=== PATIENT | male | born 1950 | race Caucasian/White ===

== ENCOUNTER 2016-08-16 18:33 | Inpatient (IN) | payer MEDICARE ==
[2016-08-16 20:05] VITALS: BP 134/93
[2016-08-16] MEDS ORDERED: Magnesium Hydroxide (MOM) 30 mL UDC PO PRN (20:08)
[2016-08-16] MEDS ORDERED: Maalox 30 mL Cup PO PRN (20:08)
[2016-08-17] MEDS ORDERED: ENOXAPARIN SODIUM 40 MG SQ SCH (09:00)
[2016-08-17] MEDS ORDERED: Enoxaparin 40 mg/0.4 mL 0.4mL Syr SUBQ SCH (09:00)
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
--- NOTE | 2016-08-17 21:59 | Admit Criteria Form ---
Admit Criteria Forms - Admit Criteria Diagnosis: PSYCHIATRIC DISORDERS Clinical Indications for Inpatient Care (Place 'X' for any and all applicable criteria): Ongoing inpatient care may be needed for ANY ONE of the following(1)(2)(3)(4)(6) (7)(8): [X]I. Danger to self or others not manageable at lower level of care. [ ]II. Grave disability (eg, inability to perform self care necessary at lower level of care) [ ]III. Agitation or inappropriate behavior interfering with care for primary condition (eg, attempting to discontinue lines or drains prematurely, unable to cooperate with respiratory care) [ ]IV. Severe disability or disorder indicated by ALL of the following: [ ]a) Severe behavioral health disorder-related symptoms or condition indicated by ANY ONE of the following: [ ]i) Severe problem with cognition, memory, judgment, or impulse control [ ]ii) Severe clinical manifestations (eg, hallucinations, delusions, other acute psychotic symptoms, lashawn, extreme agitation or anxiety) [ ]b) Patient management at lower level of care is not feasible until acute intervention or modification is initiated. Extended stay beyond goal length of stay for the primary condition may be indicated when ANY ONE of the following is present: (1)(2)(3)(4): [ ]a) Patient is a danger to self or others and not manageable at lower level of care. [ ]b) Behavior crisis management, including physical or chemical restraints, is required and is not available at a lower level of care. [ ]c) Behavioral symptoms (e.g., agitation, somnolence, inappropriate behavior) are present, and are not manageable at a lower level of care. [ ]d) Patient cannot understand follow-up treatment and crisis plan. [ ]e) Provider and supports are not sufficiently available at lower level of care. [ ]f) Patient cannot participate (e.g., verify absence of plan for harm) and is in needed of monitoring. The original [facility] content created by [facility] [employer] has been revised. The portions of the content which have been revised are identified through the use of italic text or in bold, and [facility] [employer] has neither reviewed nor approved the modified material. All other unmodified content is copyright [facility] [employer]. Please see references footnoted in the original [facility] edition 2016
--- NOTE | 2016-08-18 14:32 | History & Physical ---
ADMIT DATE: 08/16/2016 PATIENT IDENTIFICATION: A 66-year-old male. REQUESTING PHYSICIAN: Dr. Rosalba Sebastian. CHIEF COMPLAINT: "I'm fine." HISTORY OF PRESENT ILLNESS: A 66-year-old Maldivian male who speaks Estonian only. 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 Sebastian with legal status of 5150 after the patient was noted to have increasing psychosis with hallucinations and paranoid and wanted to kill his . PAST MEDICAL HISTORY: Remarkable for hypertension and diet-controlled diabetes mellitus and DJD. MEDICATIONS AT HOME: Has been reviewed and reconciled appropriately. ALLERGIES: The patient is not allergic to medications. SOCIAL HISTORY: He lives in [facility]. The patient has a history of smoking cigarette. No alcohol or drug use. FAMILY MEDICAL HISTORY: Remarkable for hypertension. REVIEW OF SYSTEMS: The patient currently denies any headache, blurred vision, double vision, dysphagia, odynophagia, runny nose, stuffy nose, fever, chills, cough, chest pain, shortness of breath, palpitation, dizziness, nausea, vomiting, diarrhea, dysuria, hematuria, hematochezia, melena. No seizure or syncopal episode. Does have pain when he wakes up in the morning with some stiffness. PHYSICAL EXAMINATION: GENERAL: The patient is alert, awake, oriented, lying in the bed without any acute distress. VITAL SIGNS: Temperature 98.6, pulse is 74, respiratory rate 18, blood pressure 136/86. SKIN: Warm to touch. HEENT: Normocephalic, atraumatic. Extraocular muscles are intact. Tongue was pink and coated. Poor dentition noted. No oral lesion noted. No facial asymmetry. NECK: Supple, no JVD, no hepatojugular reflux. No lymphadenopathy, thyromegaly or carotid bruit. HEART: Both heart sounds are regular. No S3, no S4, no murmur. CHEST: Lung equal in expansion with expiratory wheezing throughout. ABDOMEN: Soft. No guarding, no rigidity. Bowel sounds are present. No palpable mass. EXTREMITIES: No edema, no cyanosis. Diffuse osteoarthritic changes noted. There is a dry callus on the left foot also noted at the first MTP joint area. Peripheral pulses +1. No calf tenderness. NEUROLOGIC: Alert, awake, follows commands. No facial asymmetry. Moving upper and lower extremities without any difficulty. AVAILABLE DIAGNOSTIC DATA: Urinalysis is negative except leuk esterase was trace noted. White count 7.2, hemoglobin 12.7, platelet count of 324. Sodium 139, potassium ____, chloride 103, CO2 25, BUN and creatinine is 15 and 0.6. Urine drug screen was negative. Chest x-ray and EKG has been reviewed. CLINICAL IMPRESSION: 1. Hypertension. 2. Acute exacerbation of psychotic disorder. 3. Diet-controlled diabetes mellitus. 4. Degenerative joint disease. 5. Smoking. 6. Possible chronic obstructive pulmonary disease. PLAN: 1. Psychiatric evaluation and management deferred to psychiatrist. 2. Monitor the blood sugar and use sliding scale. 3. Continue antihypertensive medicines. 4. Fall precautions discussed. 5. The patient should have outpatient pulmonary function tests for evaluation of his COPD. 6. Smoking cessation counseling has been discussed. 7. Care plan has been reviewed and discussed with staff. 8. The patient is medically stable to participate in the activity provided by the Geropsych Unit at the [facility]. I sincerely thank you, Dr. Rosalba Sebastian, for giving me the opportunity to participate in patient of yours. JOB# [id number]
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
--- NOTE | 2016-08-19 18:35 | General Progress Note ---
Subjective - Review of Systems Subjective: PATIENT IS SEEN AND EXAMINED. UNABLE TO GET MEANINGFUL HISTORY. Objective - Results Recent Labs: Laboratory Last Values POC Glucose 130 MG/DL (70 - 105) H 08/18/16 16:20 - Physical Exam Vitals and I&O: Vital Signs Temp 98.3 F 08/19/16 14:00 Pulse 90 08/19/16 14:00 Resp 20 08/19/16 14:00 BP 128/69 08/19/16 14:00 Pulse Ox 98 08/19/16 14:00 Intake & Output 08/18/16 08/19/16 08/19/16 18:59 06:59 18:59 Intake Total 6316 616 8458 Balance 5401 503 0541 Intake: Oral 7131 950 6406 Other: # Voids 3 2 4 # Bowel Movements 1 0 1 Stool Characteristics Formed Formed Formed Active Medications: Current Medications Acetaminophen (Tylenol) 650 mg PO Q6H PRN PRN Reason: Mild Pain/Headache/T above 101 Stop: 10/15/16 20:07 Al Hydrox/Mg Hydrox/Simethicone (Maalox) 30 ml PO Q6H PRN PRN Reason: Dyspepsia Stop: 10/15/16 20:07 Enalapril Maleate (Vasotec) 10 mg PO DAILY [facility] Stop: 10/16/16 08:59 Last Admin: 08/19/16 08:03 Dose: 10 mg Lorazepam (Ativan) 1 mg PO Q6H PRN; Protocol PRN Reason: Anxiety/Agitation Stop: 10/15/16 20:07 Magnesium Hydroxide (Milk Of Magnesia) 30 ml PO HS PRN PRN Reason: Constipation Stop: 10/15/16 20:07 Quetiapine Fumarate (Seroquel) 37.5 mg PO BID [facility] PRN Reason: Protocol Stop: 10/18/16 10:51 Last Admin: 08/19/16 18:04 Dose: 37.5 mg Risperidone (Risperdal) 1 mg PO BID [facility] Stop: 10/16/16 08:59 Last Admin: 08/19/16 18:05 Dose: 1 mg Zolpidem Tartrate (Ambien) 5 mg PO HS PRN PRN Reason: Insomnia Stop: 10/15/16 20:07 General: Alert, Cooperative, No acute distress HEENT: Atraumatic, PERRLA Neck: +2 carotid pulse wo bruit Cardiovascular: Regular rate, Normal S1, Normal S2 Lungs: Clear to auscultation Abdomen: Bowel sounds, Soft Extremities: Other (No edema+) Psych/Mental Status: Other (Labile mood+) Assessment/Plan - Assessment Assessment: COPD HTN DIET CONTROLLED DM DJD PSYCH DISORDER FALL RISK - Plan Plan: PRN OXYGEN HHN PRN. ANTI HTN MEDS. MONITOR GLUCOSE AND VITALS FALL PRECAUTIONS. MONITOR BEHAVIOR. CONTINUE CURRENT CARE PSYCH MEDS PSYCH FOLLOW UP. DISCUSSED WITH STAFF.
--- NOTE | 2016-08-20 05:54 | Progress Notes ---
DATE: 08/19/2016 Case was discussed with staff of the patient, reviewed records. The patient has been acting aggressive with the staff, acting out, throwing water on the staff, continues to be argumentative, unpredictable, impulsive, needing redirection, looking disheveled, disorganized. He is currently on Lexapro 25 mg twice a day as well as Risperdal 1 mg twice a day with no side effects, no sedation, no nausea. I will be increasing his Seroquel to 37.5 mg twice a day. So far, no side effects, no sedation, no nausea, and no extrapyramidal symptoms. JOB# [id number]
--- NOTE | 2016-08-21 08:11 | Progress Notes ---
DATE: 08/20/2016 SUBJECTIVE: Chart reviewed and the patient interviewed. Also discussed the patient's condition with the staff and reviewed records and labs. The patient is still anxious and is still with irritable mood. The patient also is still having episodes of aggression and still needs lots of redirections. The patient also is slightly easier to redirect him. The patient continued to comply with taking his medications with no side effects of Seroquel. ASSESSMENT: The patient is still psychotic. TREATMENT PLAN: Continue working on his behavior and poor impulse control, and continue adjusting psychotropic medications and followup. JOB# [id number]
[2016-08-22] MEDS: Multivitamin Tab PO SCH (08:38)
--- NOTE | 2016-08-22 08:43 | Progress Notes ---
DATE: 08/21/2016 SUBJECTIVE: Chart reviewed and the patient interviewed. Also, discussed the patient's condition with the staff and reviewed records and labs. The patient is still in angry and in irritable mood. The patient also still needs lots of redirections. The patient also still has periods of agitation and aggression, especially when staff tries to help him with his ADLs. Otherwise, the patient is slightly easier to redirect him. ASSESSMENT: The patient is still aggressive and needs close monitoring. TREATMENT PLAN: We will continue monitoring his behavior and his condition closely. Also, continue to work on behavioral modification, and we will continue to follow up. JOB# [id number]
[2016-08-22] MEDS ORDERED: Haloperidol Lactate 5 mg/mL 1mL Vial ONE (15:33)
[2016-08-22] MEDS ORDERED: Haloperidol Lactate 5 mg/mL 1mL Vial IM ONE (15:34)
--- NOTE | 2016-08-22 23:44 | Progress Notes ---
DATE: 08/22/2016 SUBJECTIVE: Chart was reviewed and the patient was interviewed. Also discussed the patient's condition with the staff and reviewed records and labs. The patient is still confused and is still disoriented. The patient also is still delusional and he thinks that, "I work here." He has been trying to wipe the floor and saying that cleaning. The patient also is still having difficulty following redirections and he is still confused. Otherwise, the patient is compliant with taking his medications with no side effects of medications. ASSESSMENT: The patient is still psychotic and manic and confused. TREATMENT PLAN: Continue monitoring his behavior and his condition closely. Also, Seroquel was increased to 50 mg 3 times a day with no side effects. We will continue the same dose and we will continue to follow up. JOB# [id number]
[2016-08-23] MEDS: Multivitamin Tab PO SCH (08:04)
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
[2016-08-24] MEDS: Multivitamin Tab PO SCH (08:02)
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
--- NOTE | 2016-08-25 00:01 | Progress Notes ---
DATE: 08/24/2016 The patient was seen and examined. The patient states, "I'm fine. I want to go home." Upon further questioning, RN does not report any new event from medical standpoint. PHYSICAL EXAMINATION: VITAL SIGNS: See nurse's note. HEENT: Poor dentition. NECK: Supple, no JVD. HEART: Regular. CHEST: Equal in expansion. LUNGS: No wheezing. No crackles. ABDOMEN: Soft. No guarding. No rigidity. EXTREMITIES: No edema. NEUROLOGIC: Nonfocal. Available MAR has been reviewed. CLINICAL IMPRESSION: 1. Hypertension. 2. Diet-controlled diabetes mellitus. 3. Degenerative joint disease. 4. Chronic obstructive pulmonary disease. 5. Smoking. 6. Psychotic disorder. PLAN: 1. Psychiatric disorder. Management deferred to psychiatrist. 2. Antihypertensive medicine. 3. Glucoscan. 4. Diabetic diet. 5. Smoking cessation counseling discussed. 6. General nursing care. 7. Follow labs. 8. Followup visit tomorrow. JOB# [id number]
[2016-08-25] MEDS: Multivitamin Tab PO SCH (08:54)
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
[2016-08-26] MEDS: Multivitamin Tab PO SCH (09:42)
--- NOTE | 2016-08-27 02:10 | Progress Notes ---
DATE: 08/26/[address] Randhawa covering for Dr. Sebastian. SUBJECTIVE: The patient was seen and evaluated. The patient's chart reviewed. Nursing staff reported that the patient ____ get easily irritable and ____ himself trying to hit others. Today on [id number] evaluation, the patient is easily irritable, easily agitated, very poor historian, does not really want to engage in a much linear conversation and he avoids the interview. MENTAL STATUS EXAMINATION: Avoidant of the interview, poor insight, judgment and impulse control. ASSESSMENT AND PLAN: The patient is a 66-year-old male who continues to find himself still on aggressive behavior. The patient is still unpredictable resulting in aggressive behavior, he is unable to formulate a safe plan outside the structured environment. We will continue with the current psychiatrist's treatment plans and goals and add medications to reach a steady state and target the patient's residual aggressive symptoms. [facility]# [id number]
[2016-08-27] MEDS: Multivitamin Tab PO SCH (09:23)
--- NOTE | 2016-08-28 03:56 | Progress Notes ---
DATE: 08/27/2016 SUBJECTIVE: The patient was seen, chart reviewed, and discussed with staff. The patient is currently in the hospital, admitted under the care of Dr. Sebastian. The patient has been agitated and aggressive, needing a lot of prompting and redirection. The patient was admitted on 08/17/2016, noted to be aggressive at home, paranoid, hitting his , very dangerous and violent and agitated. The patient is minimizing his symptoms, not quite sure why he is here. He is oriented to name, place, year. Dr. Randhawa saw the patient over the weekend and is noting that he remained symptomatic, somewhat irritable, aggressive, impulsive, poor impulse control, not a very good historian, guarded, minimizing the reasons that he is here, still aggressive at times. Medications were reviewed, currently on Seroquel b.i.d. at bedtime. ASSESSMENT: The patient remains symptomatic. There are still continued safety concerns. We will continue to monitor and titrate medications. The patient is not safe for discharge due to his violent behaviors upon presentation and has continued irritability and poor impulse control. [facility]# [id number]
[2016-08-28] MEDS: Multivitamin Tab PO SCH (08:44)
--- NOTE | 2016-08-29 03:28 | Progress Notes ---
DATE: 08/28/2016 SUBJECTIVE: The patient was seen, chart reviewed, and discussed with staff. The patient is singing, still rambling, currently tolerant of his medications and good medication compliance. No side effects. The patient is still noted to be somewhat irritable, poor impulse control, agitated, not a very good historian, not really engaging much in linear conversation, avoidant of the interview. The patient is denying any medication side effects, sleeping well, eating well. ASSESSMENT: The patient remains avoidant of the interview, poor insight, poor impulse control, safety concerns persist, unpredictable. We will continue to monitor, continue medications at current dose given the persistence of the patient's behaviors, there are continuing safety concerns, but improvement has been noted. He seems to be less aggressive and following unit rules and directions better. [facility]# [id number]
[2016-08-29] MEDS: Multivitamin Tab PO SCH (08:20)
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
--- NOTE | 2016-08-29 14:50 | General Progress Note ---
Subjective - Review of Systems Subjective: PATIENT IS SEEN AND EXAMINED. UNABLE TO GET MEANINGFUL HISTORY. GOING TO ECF. AMBULATING. Objective - Results Recent Labs: Laboratory Last Values POC Glucose 130 MG/DL (70 - 105) H 08/18/16 16:20 - Physical Exam Vitals and I&O: Vital Signs Temp 98.3 F 08/29/16 05:25 Pulse 82 08/29/16 08:20 Resp 20 08/29/16 05:25 BP 123/60 08/29/16 08:20 Pulse Ox 97 08/29/16 05:25 Intake & Output 08/28/16 08/29/16 08/29/16 18:59 06:59 18:59 Intake Total 900 Balance 900 Intake: Oral 900 Other: # Voids 4 2 # Bowel Movements 1 1 Active Medications: Current Medications Acetaminophen (Tylenol) 650 mg PO Q6H PRN PRN Reason: Mild Pain/Headache/T above 101 Stop: 10/15/16 20:07 Al Hydrox/Mg Hydrox/Simethicone (Maalox) 30 ml PO Q6H PRN PRN Reason: Dyspepsia Stop: 10/15/16 20:07 Clonazepam (Klonopin) 0.5 mg PO BID MAGUI PRN Reason: Protocol Stop: 10/22/16 16:59 Last Admin: 08/29/16 08:20 Dose: 0.5 mg Enalapril Maleate (Vasotec) 10 mg PO DAILY [facility] Stop: 10/16/16 08:59 Last Admin: 08/29/16 08:20 Dose: 10 mg Lorazepam (Ativan) 1 mg PO Q6H PRN; Protocol PRN Reason: Anxiety/Agitation Stop: 10/15/16 20:07 Magnesium Hydroxide (Milk Of Magnesia) 30 ml PO HS PRN PRN Reason: Constipation Stop: 10/15/16 20:07 Multivitamins/Vitamin C (Theragran) 1 tab PO DAILY MAGUI Stop: 10/21/16 08:59 Last Admin: 08/29/16 08:20 Dose: 1 tab Quetiapine Fumarate (Seroquel) 100 mg PO BID MAGUI Stop: 10/22/16 16:59 Last Admin: 08/29/16 08:20 Dose: 100 mg Quetiapine Fumarate (Seroquel) 200 mg PO HS MAGUI PRN Reason: Protocol Stop: 10/22/16 20:59 Last Admin: 08/28/16 20:34 Dose: 200 mg Thiamine HCl (Vitamin B1) 100 mg PO DAILY MAGUI Stop: 10/21/16 08:59 Last Admin: 08/29/16 08:20 Dose: 100 mg Zolpidem Tartrate (Ambien) 5 mg PO HS PRN PRN Reason: Insomnia Stop: 10/15/16 20:07 Last Admin: 08/20/16 21:02 Dose: 5 mg General: Alert, Cooperative HEENT: Atraumatic, PERRLA Neck: Supple, JVD Cardiovascular: Regular rate, Normal S1, Normal S2 Lungs: Clear to auscultation Abdomen: Bowel sounds, Soft Extremities: Other (no edema+) Neurological: Normal gait Assessment/Plan - Assessment Assessment: COPD HTN DIET CONTROLLED DM DJD PSYCH DISORDER FALL RISK - Plan Plan: STABLE FOR DISCHARGE TO ECF. KEEP CURRENT MEDS I WILL FOLLOW HIM AT ECF. DISCUSSED WITH STAFF. Nutritional Asmnt/Malnutr-PDOC - Dietary Evaluation Malnutrition Findings (Please click <Entered> for more info): Nutritional Asmnt/Malnutrition Start: 08/23/16 19: 07 Text: Status: Complete Freq: Document 08/23/16 19:07 [facility] (Rec: 08/23/16 19:13 [facility] [id number]) Nutritional Asmnt/Malnutrition Patient General Information Nutritional Screening Low risk Diagnosis Schizoaffective disorder, bipolar type with psychotic features Pertinent Medical Hx/Surgical Hx HTN, DM2, schizoaffective disorder Subjective Information Pt is a 66-year-old male admitted with chief complaint of agitation and aggressive behavior. Per RN notes, pt is confused and delusion. Pt speaks Setswana only. Current Diet Order/ Nutrition Support Regular Patient / S.O Can't verbalize diet edu Pertinent Medications Theragran, Seroquel, Vitamin B1 Pertinent Labs Reviewed. POC Glucose WNL. Nutritional Hx/Data Height 1.7 m Height (Calculated Centimeters) 170.2 Current Weight (lbs) 68.946 kg Weight (Calculated Kilograms) 68.9 Weight (Calculated Grams) 15527.0 Standish Body Weight 148 % Standish Body Weight 103 Weight Status Approriate GI Symptoms GI Symptoms Last BM Difficult in: Chewing Food Allergies No Cultural/Ethnic/M[employer]onism Belief No preferences reported. Skin Integrity/Comment: Levi 18. Skin intact. 1+ pitting edema to BLE Current %PO Good (75-100%) Estimated Nutritional Goals BEE in Kcals: Using Current wt Calories/Kcals/Kg Based on CBW 69 kg Kcals Calculated 8935-4719 kcals/day (25-30 kcals/kg) Protein: Using Current wt Protein g/kg: Based on CBW 69 kg Protein Calculated 69 gm/day (1 gm/kg) Fluid: ml 8968-1900 ml/day (30-35 ml/kg) Nutritional Problem 1. Problem Problem No nutritional problems at this time. Malnutrition Alert Protein-Calorie Malnutrition N/A Is there a minimum of two criteria No selected? Query Text:Check all the applicable criteria. A minimum of two criteria are recommended for diagnosis of either severe or non-severe malnutrition. Malnutrition Related to Morbid Obesity Malnutrition related to morbid obesity No Intervention/Recommendation Comments 1. Continue with current diet as tolerated. Encourage pt to use dentures, if available. Expected Outcomes/Goals Expected Outcomes/Goals Have pt meet at least 75% of estimated nutritional needs with acceptable tolerance. Physician Parameters for PEM Normal Weight % 90% - 110% (Normal) Body Mass Index (BMI) 19 - 24 (Normal)
== END 2016-08-29 17:40 | DRG 885 ==
LOC: GERO 18:33
PROVIDERS: ADMIT Psychiatry & Neurology Psychiatry; ATTEND Psychiatry & Neurology Psychiatry
DX: F25.0 Schizoaffective disorder, bipolar type (principal); E11.9 Type 2 diabetes mellitus without complications; J44.9 Chronic obstructive pulmonary disease, unspecified; F29 Unspecified psychosis not due to a substance or known physiological condition; I10 Essential (primary) hypertension; M19.90 Unspecified osteoarthritis, unspecified site; F17.210 Nicotine dependence, cigarettes, uncomplicated; Z71.6 Tobacco abuse counseling; Z91.14 Patient's other noncompliance with medication regimen; Z82.49 Family history of ischemic heart disease and other diseases of the circulatory system; F31.9 Bipolar disorder, unspecified
CPT/HCPCS: 82948-90; 90899; G0410; J1200; J1630; J2060; Z7610